=== PATIENT | female | born 1955 | race Caucasian/White ===

== ENCOUNTER 2025-02-20 12:53 | Outpatient (CLI) | payer MEDICARE, SELFPAY ==
--- NOTE | ~2025-02-20 | XR_ITS ---
EXAMINATION: XR chest 2V, 02/20/2025 13:10 [facility] HISTORY: R06.02 - Shortness of breath COMPARISON: No comparisons available. Technique: 2 views obtained. Findings: The lungs are clear, no effusion. No pneumothorax. Heart is normal size. Mediastinal and hilar contours are within normal limits. Bony thorax no acute abnormality. Impression: No acute cardiopulmonary abnormality. Reviewed, dictated and finalized at location [facility] Impression: No acute cardiopulmonary abnormality.
--- NOTE | 2025-02-20 14:09 | ECHO_ITS ---
Patient Info Name: Denisse Davila Age: 69 years : 1955 Gender: Female Ht: 62 in Wt: 180 lbs BSA: 1.92 m2 HR: 79 bpm BP: 170 / 74 mmHg Technical Quality: Good Exam Date: 02/20/2025 2:11 PM Patient Status: O Admit Date: 02/20/2025 Exam Type: CA echo doppler color flow Complete two-dimensional, color flow and Doppler transthoracic echocardiogram is performed. Staff Referring Physician: David Moise Special Services Director: Dave Fine III Attending Provider: David Moise Summary 1. Complete two-dimensional, color flow and Doppler transthoracic echocardiogram is performed. 2. Left ventricular chamber dimension is normal. 3. Left ventricular systolic function is normal, estimated at 65-70. 4. The left ventricular diastolic function is grade I diastolic dysfunction. 5. E/e' 10 is mildly elevated. 6. There is severe aortic valve sclerosis. 7. There is very mild aortic valve stenosis with a peak velocity of 227 cm/s, mean gradient of 9 mmHg, and aortic valve area of 2.3 cm2. 8. The mitral valve has a mildly calcified annulus. Left Ventricle E/e' 10 is mildly elevated. Left ventricular chamber dimension is normal. Left ventricular systolic function is normal, estimated at 65-70. The left ventricular diastolic function is grade I diastolic dysfunction. Right Ventricle Right ventricular chamber dimension is normal. Right ventricular systolic function is normal and with normal TAPSE 1.9 cm. Left Atria Left atrial chamber dimension is normal. Right Atria Right atrial chamber dimension is normal. Aortic Valve The aortic valve is trileaflet. There is severe aortic valve sclerosis. There is very mild aortic valve stenosis with a peak velocity of 227 cm/s, mean gradient of 9 mmHg, and aortic valve area of 2.3 cm2. There is no aortic valve regurgitation. Pulmonic Valve There is no pulmonic regurgitation. Mitral Valve The mitral valve has a mildly calcified annulus. There is no mitral valve stenosis. There is no mitral valve regurgitation. Tricuspid Valve There is no tricuspid valve regurgitation. Pericardium/Pleural There is no pericardial effusion. Inferior Vena Cava Normal inferior vena cava with >50% collapse upon inspiration consistent with normal right atrial pressure, 5 mmHg. Aorta The aortic root size at the sinus of Valsalva is normal. Left Ventricular Outflow Tract Name Value Normal LVOT 2D LVOT Diameter 2.0 cm LVOT Doppler LVOT Peak Velocity 124 cm/s LVOT Peak Gradient 6 mmHg LVOT Mean Gradient 3 mmHg LVOT VTI 28 cm LVOT VTI/AV VTI Ratio 0.7 LVOT Stroke Volume 86 ml LVOT CO 6.3 l/min LVOT CI 3.3 l/min/m2 Pulmonic Valve Name Value Normal PV Doppler PV Peak Velocity 104 cm/s PV Peak Gradient 4 mmHg PV Mean Gradient 2 mmHg Mitral Valve Name Value Normal MV Doppler MV Peak Gradient 5 mmHg MV Mean Gradient 2 mmHg MV Area (Cont Eq VTI) 2.6 cm2 MV Diastolic Function MV E Peak Velocity 99 cm/s MV A Peak Velocity 112 cm/s MV E/A 0.9 MV Decel Time (PW) 211 ms MV Annular TDI MV E/e' (Septal) 12.2 MV E/e' (Lateral) 9.6 MV E/e' (Average) 10.9 Tricuspid Valve Name Value Normal Estimated PAP/RSVP RA Pressure 5 mmHg <=5 TV Annular TDI TV Lateral Theodora s' Velocity 16.0 cm/s >=9.5 Aortic Valve Name Value Normal AV Doppler AV Peak Velocity 227 cm/s AV Peak Gradient 18 mmHg AV Mean Gradient 9 mmHg AV VTI 38 cm AV Area (Cont Eq VTI) 2.3 cm2 >=3.0 AV Area (Cont Eq Geoffrey) 1.7 cm2 AV DI (Geoffrey) 0.55 AV Regurgitation 2D LVOT Area 3.1 cm2 Ventricles Name Value Normal LV Dimensions 2D/MM IVS Diastolic Thickness (2D) 1.1 cm 0.6-1.0 LVID Diastole (2D) 4.1 cm 3.8-5.2 LVIW Diastolic Thickness (2D) 1.0 cm 0.6-0.9 LVID Systole (2D) 2.2 cm 2.2-3.5 LVOT Diameter 2.0 cm LV Mass (2D Cubed) 139.75 g 67.00-162.00 LV Mass Index (2D Cubed) 73 g/m2 43-95 Relative Wall Thickness (2D) 0.47 <=0.42 LV Fractional Shortening/Ejection Fraction 2D/MM LV Fractional Shortening (2D) 47 % 27-45 LV EF (2D Teichholz) 79 % LV Diastolic Volume (4C MOD) 43 ml LV EF (4C MOD) 63 % LV Diastolic Volume (2C MOD) 52 ml LV EF (2C MOD) 76 % LV Diastolic Volume (BP MOD) 50 ml 46-106 LV Diastolic Volume Index (BP MOD) 26 ml/m2 29-61 LV Systolic Volume (BP MOD) 14 ml 14-42 LV Systolic Volume Index (BP MOD) 7 ml/m2 8-24 LV EF (BP MOD) 72 % 54-74 LV Diastolic Length (4C) 6.6 cm LV Systolic Length (4C) 5.1 cm LV Stroke Volume (4C MOD) 27 ml Atria Name Value Normal LA Dimensions LA Volume (4C A-L) 34 ml LA Volume (BP A-L) 33 ml RA Dimensions RA Systolic Major [place] Length (4C) 4.9 cm 2.2-2.8 RA Area (4C) 12.0 cm2 <=18.0 Report Signatures
== END 2025-02-20 12:54 | disposition home or self-care (01) ==
DX: R01.1 Cardiac murmur, unspecified (principal); R06.02 Shortness of breath
CPT/HCPCS: 71046; 93306